=== PATIENT | female | born 1995 | race Caucasian/White ===

== ENCOUNTER 2019-06-19 21:47 | Emergency (ER) | payer OTHER, MEDICAID ==
[~2019-06-19] VITALS: Ht 170.2 cm; Wt 52.2 kg
[2019-06-19] MEDS ORDERED: BIRTH CONTROL (21:56)
[2019-06-19 22:06] LABS: ABSOLUTE BASOPHILS 0.1 thou/uL (0.0-0.2); ABSOLUTE EOSINOPHILS 0.1 thou/uL (0.0-0.7); ABSOLUTE MONOCYTES 0.5 thou/uL (0.0-1.2); BASOPHILS 0.6 %; HEMATOCRIT 42.5 % (37.0-47.0); HEMOGLOBIN 14.6 gm/dL (12.0-15.0); LYMPHOCYTES 34.2 %; MCH 32.5 pg (26.0-34.0); MCHC 34.4 g/dL (28.0-37.0); MCV 94.3 fL (80.0-100.0); MONOCYTES 5.8 %; MPV 7.9 fl. (7.2-11.1); NUCLEATED RBCS 0 /100WBC; PLATELET COUNT* 294 thou/uL (150-400); POLYS 58.4 %; RBC 4.51 mil/uL (4.20-5.00); RDW-CV 14.3 % (10.5-14.5); WBC 8.6 thou/uL (4.0-11.0)
[2019-06-19 22:11] LABS: CALCIUM 9.1 mg/dL (8.5-10.1); CREATININE 0.8 mg/dL (0.6-1.3)
[2019-06-19 22:15] LABS: ALBUMIN 4.7 g/dL (3.4-5.0); TOTAL BILIRUBIN 0.9 mg/dL (<0.1-1.0); TOTAL PROTEIN 8.5 g/dL (6.4-8.2)
[2019-06-19] MEDS ORDERED: EPIPEN0.3 MG/0.1 IM (23:04)
[2019-06-19] MEDS ORDERED: PREDNISONE 10 M10 M1 PO (23:04)
[2019-06-19 23:45] VITALS: BP 102/59
--- NOTE | 2019-06-20 10:25 | EKG ---
[place] [address] ELECTROCARDIOGRAM REPORT Name: [address] Room: [facility]#: [id number] Admission: 06/19/19 Attend Phys: Discharge: 06/19/19 Date of : [birth year] Date of Service: 06/19/192201 Report #: [id number] THIS REPORT FOR: //name// 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1995 Requested By: Aleyda Rousseau Order Number: [id number] MD: Hebert Joyce Measurements Intervals [place] Rate: 122 P: 87 RI: 156 QRS: 95 QRSD: 118 T: 0 QT: 323 QTc: 460 Interpretive Statements Sinus tachycardia Probable left atrial enlargement Incomplete right bundle branch block Artifact in lead(s) II,III,aVL,aVF,V2,V3,V4 and baseline wander in lead(s) I,III,aVL No previous ECG available for comparison Electronically Signed On 06-20-2019 10:23:28 CDT by Hebert Joyce [email or web address] <ELECTRONICALLY SIGNED> By: Janiya Joyce MD, [facility] 06/20/19 1023 01 01 Janiya Joyce MD, [facility] /EPI
== END 2019-06-19 23:45 | disposition home or self-care (01) ==
LOC: M.ERS 21:47
PROVIDERS: Personal Emergency Response Attendant
DX: R20.2 Paresthesia of skin (principal); T78.1XXA Other adverse food reactions, not elsewhere classified, initial encounter; X58.XXXA Exposure to other specified factors, initial encounter

== ENCOUNTER → 2019-07-12 | Outpatient (CLI) | payer OTHER, MEDICAID ==
[~2019-07-12] MED LIST: BIRTH CONTROL; EPIPEN0.3 MG/0.1 IM; PREDNISONE 10 M10 M1 PO
--- NOTE | 2019-07-14 16:45 | 24HR ---
[place] [address] HOLTER MONITOR REPORT Name: [address] Room: [facility]#: [id number] Admission: 07/12/19 Attend Phys: KIKA MURPHY Discharge: Date of : [birth year] Date of Service: 07/14/19 1136 Report #: [id number] THIS REPORT FOR: cc: KIKA RAYMUNDO NP, KATHERINE J. NP Liston, Michael J. 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 The mean heart rate was 89 bpm. The maximum heart rate was 174 bpm corresponding with sinus tachycardia at 2:14 PM. The minimum heart rate was 54 bpm corresponding with sinus bradycardia at 5:55 AM. The patient exhibited tachycardia defined as heart rate greater than 100 bpm 29% of the monitored time. The patient exhibited bradycardia defined as heart rate less than 50 bpm less than 1% of the monitored time. There were rare premature atrial contractions noted. There were no episodes of nonsustained or sustained supraventricular arrhythmia. No ventricular ectopy was seen. There was no evidence of underlying atrial fibrillation or flutter. There were no significant pauses and rhythm. Of note the patient was tachycardic a significant amount,(29%), of the monitored time. On occasion with sinus tachycardia there was evidence of T wave inversion which is a nonspecific finding. Consider further evaluation with echocardiography or [place] [address] HOLTER MONITOR REPORT Name: [address] [id number] Admission: 07/12/19 Attend Phys: KIKA MURPHY Discharge: Date of : [birth year] Date of Service: 07/14/19 1136 Report #: [id number] Electronically Signed On 07-14-2019 16:43:40 CDT by Mark Yeager [email or web address] <ELECTRONICALLY SIGNED> By: Mark Yeager MD, [facility] 07/14/19 1643 1136 1136 Mark Yeager MD, FACC /EPI
== END ==
LOC: M.RAD 07-07 10:11
DX: N63.10 Unspecified lump in the right breast, unspecified quadrant (principal)